=== PATIENT | female | born 1980 | race Caucasian/White ===

== ENCOUNTER 2024-07-12 09:28 | Outpatient (CLI) | payer BC, SELFPAY ==
--- OUTSIDE RECORDS SUMMARY | 2024-07-12 10:03 | XMS_ITS | Referral Summary ---
Author Organization [address] Address [address] [place] [address] Care Team Providers Care Ultrasound Technician Name Role Phone No, Physician Primary Care Provider [phone] Allergies No known active allergies Medications levothyroxine (SYNTHROID) 25 mcg tablet TAKE 1 TABLET BY MOUTH ONCE A DAY DIRECTED REPEAT LAB IN 4-6 WEEKS 08/10/19 23 Active cariprazine (Vraylar) 4.5 mg capsule Take 4.5 mg by mouth daily Active citalopram (CeleXA) 20 mg tablet Take 1 tablet (20 mg total) by mouth daily Active topiramate (TOPAMAX) 25 mg capsule Take 1 capsule (25 mg total) by mouth 2 (two) times a day Active ciprofloxacin (CILOXAN) 0.3 % ophthalmic solution Administer 1 drop into the left eye every 2 (two) hours Administer 1 drop, every 2 hours, while awake, for 2 days. Then 1 drop, every 4 hours, while awake, for the next 5 days. 5 mL 09/01/19 23 Active Additional Information Patient not taking.Reported on 02/09/2023 Estarylla 0.25-35 mg-mcg per tablet TAKE 1 TABLET BY MOUTH EVERY DAY DIRECTED. TAKE ACTIVE PILLS ONLY 10/02/19 23 Active OLANZapine (ZyPREXA) 5 mg tablet Take 1 tablet (5 mg total) by mouth daily 06/20/19 24 Active ondansetron ODT (ZOFRAN-ODT) 4 mg disintegrating tablet Take 1 tablet (4 mg total) by mouth every 8 (eight) hours as needed for nausea or vomiting 20 tablet 07/15/19 24 Active Active Problems No known active problems Social History Tobacco Use Types Packs/Day Years Used Date Smoking Tobacco: Never Assessed Comments Unknown Sex and Gender Information Value Date Recorded Sex Assigned at Not on file Legal Sex Female 8:30 AM CDT Gender Identity Not on file Sexual Orientation Not on file Last Filed Vital Signs Vital Sign Reading Time Taken Comments Blood Pressure 114/72 07/15/2023 8:44 AM CDT Pulse 60 07/15/2023 8:44 AM CDT Temperature 36.8 C (98.3 F) 07/15/2023 8:44 AM CDT Respiratory Rate 18 07/15/2023 8:44 AM CDT Oxygen Saturation 99% 07/15/2023 8:44 AM CDT Inhaled Oxygen Concentration - - Weight 81.6 kg (180 lb) 07/15/2023 8:44 AM CDT Height 157.5 cm (5' 2 ) 07/15/2023 8:44 AM CDT Body Mass Index 32.92 07/15/2023 8:44 AM CDT Plan of Treatment Not on file [place] Care Teams Ultrasound Technician Relationship Specialty Start Date End Date No, Physician PCP - General 08/31/22
--- OUTSIDE RECORDS SUMMARY | 2024-07-12 10:03 | XMS_ITS | Encounter Summary ---
Author Organization [facility] Address [address] [place] [address] Phone Care Team Providers Care Disposal Plant Operator Name Role Phone Provider, None Primary Care Provider Unavailabl e Encounter Details Date Type Department Care Team (Late st Contact Info) Description 06/02/2022 Lab Requisition [facility] Laboratory Services [address] [place] [address] Juliann Newell, GROUNDS AND NURSERY SPECIALIST, CAREER DEVELOPMENT SPECIALIST [address] [place] [address] Encounter for pre-employment examination Social History Tobacco Use Types Packs/Day Years Used Date Smoking Tobacco: Never Assessed Comments Unknown Sex and Gender Information Value Date Recorded Sex Assigned at Not on file Legal Sex Female 11:45 AM TRUCK FARMER Gender Identity Not on file Sexual Orientation Not on file COVID-19 Exposure Response Date Recorded In the last 10 days, have yo u been in contact with someone who was confirmed or suspected to have Coronavirus/COVID-19? Unable to assess 06/02/2022 11:50 AM TRUCK FARMER documented as of this encounter Plan of Treatment Not on file documented as of this encounter Procedures Procedure Name Priority Date/Time Associated Diagnosis Comments QUANTIFERON-TB GOLD PLUS Routine 06/02/2022 11:00 AM TRUCK FARMER Encounter for pre-employment examination documented in this encounter Results * QUANTIFERON-TB GOLD PLUS (06/02/2022 11:00 AM TRUCK FARMER) NIL CONTROL 0.11 <8.01 IU/mL 06/04/2022 2:52 PM TRUCK FARMER [facility] TB ANTIGEN 1 0.00 <0.35 IU/mL 06/04/2022 2:52 PM [facility] TB ANTIGEN 2 0.00 <0.35 IU/mL 06/04/2022 2:52 PM [facility] MITOGEN CONTROL >10.00 >0.49 IU/mL 06/05/19 2:52 PM [facility] INTEPRETATION TB NEGATIVE NEGATIVE, NEGATIVE (TB antigen response less than 25% of internal negative control value) 06/04/2022 2:52 PM [facility] Comment:No immune response t o Mycobacterium tuberculosis antigens was noted. M. tuberculosis infection unlikely. Blood No Phlebotomy Charged / Unknown 06/02/2022 11:00 AM TRUCK FARMER 06/02/2022 3:28 PM TRUCK FARMER Narrative [facility] - 06/04/2022 2:52 PM TRUCK FARMER A POSITIVE QUANTIFERON-TB GOLD PLUS RESULT SHOULD NOT BE THE SOLE OR DEFINITIVE BASIS FOR DETERMINING INFECTION WITH M.TUBERCULOSIS. Diagnosing or excluding tuberculosis disease, and assessing the probability of LTBI, requires a combination of epidemiological, historical, medical and diagnostic findings (e.g., acid fast bacilli (AFB) smear and culture, chest xray) that should be taken into account when interpreting QFT-Plus results. Furthermore, the magnitude of the measured gamma interferon level cannot be correlated to stage or degree of infection, level of immune responsiveness, or likelihood for progression to active disease. The Nil control adjusts for background (e.g., elevated levels of circulating gamma interferon or presence of heterophile antibodies). The Mitogen control serves as an internal positive control and verifies each specimen tested can produce a gamma interferon response. Low mitogen may occur with insufficient lymphocytes, reduced lymphocyte activity due to improper specimen handling, filling/mixing of the mitogen tube, or inability of the patient's lymphocytes to generate gamma interferon. Infection with other Mycobacteria, including M. kansasii, M. szulgai, and M. marinum, may cause false positive results. A negative QuantiFERON-TB Gold Plus result does not preclude the possibility of M. tuberculosis infection or tuberculosis disease: false negative results can be due to incorrect blood sample collection/ improper handling of the specimen, stage of infection (e.g., specimen obtained prior to the development of cellular immune response), co-morbid conditions which affect immune function, or other individual immunological factors. The minimum number of lymphocytes required for a reliable test has not been established and may also be variable. Diagnostic testing for Mycobacterium tuberculosis using Interferon Gamma Release Assays should follow applicable published guidelines, including when testing in populations such as children, women, and HIV-infected or otherwise immunocompromised individuals. https://www.cdc.gov/tb/publications/guidelines/testing.htm [place] Juliann Newell APRN, CNP IMMUNOLOGY ORDERABLES F inal Result [facility] [address] [place] [address], [place] documented in this encounter Visit Diagnoses Diagnosis Encounter for pre-employment examination Health examination of defined subpopulation documented in this encounter Care Teams Disposal Plant Operator Relationship Specialty Start Date End Date Provider, None [place] PCP - General 06/02/22 documented as of this encounter
--- OUTSIDE RECORDS SUMMARY | 2024-07-12 10:03 | XMS_ITS | Clinical Summary ---
Author Organization [address] Address [address] [place] [address] Care Team Providers Care Chemical Worker Name Role Phone No, Physician Primary Care Provider [phone] Allergies No known active allergies Medications levothyroxine [...] on file Sexual Orientation Not on file Obstetrics History Last Filed Vital Signs Vital Sign Reading [...] 07/15/2023 8:44 AM CDT Plan of Treatment Health Maintenance Due Date Last Done Comments Breast Cancer Screening-Mammogram 1982 Cervical Cancer Screening 1982 Depression Screening 1982 Hepatitis C Screening 1982 DTaP/Tdap/Td Vaccine (1 - Tdap) 1993 Varicella Vaccines (1 of 2 - 13+ 2-dose series) 1995 Hepatitis B Screening 2000 Regular Well Visit/Exam 18-64 2000 Influenza Vaccine (Season Ended) 2024 HPV Vaccines Aged Out No longer eligi ble based on patient's age to complete this topic Pneumococcal vaccine <65 Aged Out No longer eligible based on patient's age to complete this topic Insurance [facility] Care Teams Chemical Worker Relationship Specialty Start Date End Date No, Physician PCP - General 08/31/22
--- OUTSIDE RECORDS SUMMARY | 2024-07-12 10:03 | XMS_ITS | Clinical Summary ---
Author Organization [facility] Address [address] [place] [address] Phone Care Team Providers Care Concrete Stone Finishing Supervisor Name Role Phone Provider, None Primary Care Provider Unavailabl e Social History Tobacco Use Types Packs/Day Years Used Date Smoking Tobacco: Never Assessed Comments Unknown Sex and Gender Information Value Date Recorded Sex Assigned at Not on file Legal Sex Female 11:45 AM AIRCRAFT MECHANIC Gender Identity Not on file Sexual Orientation Not on file Plan of Treatment Health Maintenance Due Date Last Done Comments Hepatitis C Virus (HCV) Screening 1982 TdaP Immunization 1982 Hepatitis B Immunization (1 of 3 - 19+ 3-dose series) 2001 Pap Smear 2003 Cervical Cancer Screening (CCS) 2012 HPV/Cotest 2012 Discussion re Starting/Frequ ency of Mammograms 2022 Influenza Immunization (#1) 2023 SARS-COV-2 Immunization ( season) 2023 Respiratory Syncytial Virus (RSV) Immunization (Adult) (1 - 1-dose 75+ series) 2057 Meningococcal Immunization (ACWY) Aged Out No longer eligible based on patient's age to complete this topic Pneumococcal Immunization Combined Aged Out No longer eligible based on patient's age to complete this topic Rotavirus Immunization Aged Out No lo nger eligible based on patient's age to complete this topic Care Teams Concrete Stone Finishing Supervisor Relationship Specialty Start Date End Date Provider, Latasha MAYORGA PCP - General 06/02/22
[2024-07-12 10:23] LABS: Basophils Absolute Auto 0.04 K/mm3 (0.00-0.10); Basophils Percent Auto 0.5 % (0.0-1.0); Eosinophils Absolute Auto 0.12 K/mm3 (0.02-0.50); Eosinophils Percent Auto 1.5 % (1.0-6.0); Hemoglobin 13.9 g/dL (12.0-15.0); Immature Granulocyte Absolute 0.01 K/mm3 (0.00-0.00); Immature Granulocyte Percent A 0.1 % (0.0-0.0); Lymphocytes Absolute Auto 2.26 K/mm3 (1.10-4.50); Lymphocytes Percent Auto 28.3 % (18.0-42.0); Mean Corpuscular HGB Conc 32.3 g/dL (32-36); Mean Corpuscular Hemoglobin 28.8 pg (27.0-31.0); Monocytes Absolute Auto 0.52 K/mm3 (0.10-0.90); Monocytes Percent Auto 6.5 % (2.0-11.0); Neutrophils Absolute Auto 5.03 K/mm3 (1.70-7.20); Neutrophils Percent Auto 63.1 % (50.0-70.0); Platelet Count Result 233 K/mm3 (150-420); Red Blood Count 4.83 M/mm3 (4.20-5.40); Red Cell Distribution Width 13.1 % (11.6-14.4)
[2024-07-12 10:35] LABS: Hemoglobin A1C 5.6 % (<5.7)
[2024-07-12 12:03] LABS: Alanine Aminotransferase 26 U/L (14-59); Alkaline Phosphatase 116 U/L (46-116); Anion Gap 9 mmol/L (4-12); Aspartate Amino Transferase 15 U/L (15-37); Bilirubin,Total 1.2 mg/dL (0.00-1.00); Blood Urea Nitrogen 16 mg/dL (7-18); Calcium 8.9 mg/dL (8.5-10.1); Carbon Dioxide 27 mmol/L (21-32); Chloride 105 mmol/L (98-108); Cholesterol 201 mg/dL (0-200); Estimated Glomerular Filt Rate > 60; Glucose 86 mg/dL (70-99); HDL Direct 38 mg/dL (40-60); LDL Cholesterol Calculated 139 mg/dL (<130); Osmolality Calculated 292 mOsm/kg (285-295); Potassium 4.6 mmol/L (3.5-5.1); Sodium 141 mmol/L (136-145); Triglycerides 119 mg/dL (0-150)
[2024-07-12 12:37] LABS: Thyroid Stimulating Hormone Reflex 2.84 u/IU/mL (0.36-3.74)
[2024-07-14 09:52] LABS: TB Skin Test Erythema 2 mm; TB Skin Test Induration 1 mm (0-10); TB Skin Test Interpretation Negative (Negative); TB Skin Test Site Left Arm
== END 2024-07-12 09:29 | disposition home or self-care (01) ==
LOC: CHSLAB 09:30
PROVIDERS: PCP Nurse Practitioner Family; Visit Provider Nurse Practitioner Family
DX: Z00.00 Encounter for general adult medical examination without abnormal findings (principal); Z11.1 Encounter for screening for respiratory tuberculosis
CPT/HCPCS: 36415; 80053; 80061; 83036; 84443; 85025; 86580

== ENCOUNTER 2024-07-14 09:50 | Outpatient (CLI) | payer BC, SELFPAY ==
--- OUTSIDE RECORDS SUMMARY | 2024-07-14 09:55 | XMS_ITS | Clinical Summary ---
Author Organization [address] Address [address] [place] [address] Care Team Providers Care Curriculum Director Name Role Phone No, Physician Primary Care Provider [phone] Allergies No known active allergies Medications levothyroxine [...] patient's age to complete this topic Insurance [facility] Care Teams Curriculum Director Relationship Specialty Start Date End Date No, Physician PCP - General 08/31/22
--- OUTSIDE RECORDS SUMMARY | 2024-07-14 09:55 | XMS_ITS | Referral Summary ---
Author Organization [address] Address [address] [place] [phone] Care Team Providers Care Lode Miner Name Role Phone No, Physician Primary Care Provider [phone] Allergies No known active allergies Medications levothyroxine [...] Plan of Treatment Not on file Insurance [employer] [place] Care Teams Lode Miner Relationship Specialty Start Date End Date No, Physician PCP - General 08/31/22
--- OUTSIDE RECORDS SUMMARY | 2024-07-14 09:55 | XMS_ITS | Clinical Summary ---
Author Organization [facility] Address [address] [place] [address] Phone Care Team Providers Care Video Poker Floorman Name Role Phone Provider, None Primary Care Provider Unavailabl e Social History Tobacco Use Types Packs/Day Years Used Date Smoking Tobacco: Never Assessed Comments Unknown Sex and Gender Information Value Date Recorded Sex Assigned at Not on file Legal Sex Female 11:45 AM LICENSING SPECIALIST Gender Identity Not on file Sexual Orientation [...] age to complete this topic Care Teams Video Poker Floorman Relationship Specialty Start Date End Date Provider, Latasha MAYORGA PCP - General 06/02/22
--- OUTSIDE RECORDS SUMMARY | 2024-07-14 09:55 | XMS_ITS | Encounter Summary ---
Author Organization [facility] Address [address] [place] [address] Phone Care Team Providers Care Bottom Steep Tender Name Role Phone Provider, None Primary Care Provider Unavailabl e Encounter Details Date Type Department Care Team (Late st Contact Info) Description 06/02/2022 Lab Requisition [facility] Laboratory Services [address] [place] [address] Jluiann Newell, BILLET WORKER, [facility]ILD [facility] [address] [place] [address] Encounter for pre-employment examination Social History Tobacco Use Types Packs/Day Years Used Date Smoking Tobacco: Never Assessed Comments Unknown Sex and Gender Information Value Date Recorded Sex Assigned at Not on file Legal Sex Female 11:45 AM BOX REPAIRER Gender Identity Not on file Sexual Orientation Not on file COVID-19 Exposure Response Date Recorded In the last 10 days, have yo u been in contact with someone who was confirmed or suspected to have Coronavirus/COVID-19? Unable to assess 06/02/2022 11:50 AM BOX REPAIRER documented as of this encounter Plan of Treatment Not on file documented as of this encounter Procedures Procedure Name Priority Date/Time Associated Diagnosis Comments QUANTIFERON-TB GOLD PLUS Routine 06/02/2022 11:00 AM BOX REPAIRER Encounter for pre-employment examination documented in this encounter Results * QUANTIFERON-TB GOLD PLUS (06/02/2022 11:00 AM BOX REPAIRER) NIL CONTROL 0.11 <8.01 IU/mL 06/04/2022 2:52 PM BOX REPAIRER [facility] TB ANTIGEN 1 0.00 <0.35 IU/mL 06/04/2022 2:52 PM [facility] TB ANTIGEN 2 0.00 <0.35 IU/mL 06/04/2022 2:52 PM [facility] MITOGEN CONTROL >10.00 >0.49 IU/mL 06/05/19 2:52 PM [facility] INTEPRETATION TB NEGATIVE NEGATIVE, NEGATIVE (TB antigen response less than 25% of internal negative control value) 06/04/2022 2:52 PM [facility] Comment:No immune response t o Mycobacterium tuberculosis antigens was noted. M. tuberculosis infection unlikely. Blood No Phlebotomy Charged / Unknown 06/02/2022 11:00 AM BOX REPAIRER 06/02/2022 3:28 PM BOX REPAIRER Narrative [facility] - 06/04/2022 2:52 PM BOX REPAIRER A POSITIVE QUANTIFERON-TB GOLD PLUS RESULT SHOULD [...] CNP IMMUNOLOGY ORDERABLES F inal Result [facility] [address] [place] [address], [place] documented in this encounter Visit Diagnoses Diagnosis Encounter for pre-employment examination Health examination of defined subpopulation documented in this encounter Care Teams Bottom Steep Tender Relationship Specialty Start Date End Date Provider, None [place] PCP - General 06/02/22 documented as of this encounter
[2024-07-14 11:16] LABS: Alanine Aminotransferase 23 U/L (14-59); Alkaline Phosphatase 118 U/L (46-116); Anion Gap 7 mmol/L (4-12); Aspartate Amino Transferase 14 U/L (15-37); Bilirubin,Total 0.7 mg/dL (0.00-1.00); Blood Urea Nitrogen 12 mg/dL (7-18); Carbon Dioxide 28 mmol/L (21-32); Chloride 105 mmol/L (98-108); Cholesterol 204 mg/dL (0-200); Estimated Glomerular Filt Rate > 60; Glucose 106 mg/dL (70-99); HDL Direct 38 mg/dL (40-60); LDL Cholesterol Calculated 141 mg/dL (<130); Osmolality Calculated 289 mOsm/kg (285-295); Potassium 4.9 mmol/L (3.5-5.1); Sodium 140 mmol/L (136-145); Triglycerides 125 mg/dL (0-150)
== END 2024-07-14 09:51 | disposition home or self-care (01) ==
LOC: CHSLAB 09:54
PROVIDERS: PCP Nurse Practitioner Family; Visit Provider Nurse Practitioner Family
DX: E78.00 Pure hypercholesterolemia, unspecified (principal)
CPT/HCPCS: 36415; 80053; 80061

== ENCOUNTER 2024-07-19 17:29 | Outpatient (CLI) | payer BC, SELFPAY ==
--- OUTSIDE RECORDS SUMMARY | 2024-07-19 17:37 | XMS_ITS | Encounter Summary ---
Author Organization [facility] Address [address] [place] [address] Phone Care Team Providers Care Scowman Name Role Phone Provider, None Primary Care Provider Unavailabl e Encounter Details Date Type Department Care Team (Late st Contact Info) Description 06/02/2022 Lab Requisition [facility] Laboratory Services [address] [place] [address] Juliann Newell, INTEGRATION SOFTWARE ENGINEER, BICYCLE MESSENGER [address] [place] [address] Encounter for pre-employment examination Social History Tobacco Use Types Packs/Day Years Used Date Smoking Tobacco: Never Assessed Comments Unknown Sex and Gender Information Value Date Recorded Sex Assigned at Not on file Legal Sex Female 11:45 AM BULK STATION AGENT Gender Identity Not on file Sexual Orientation Not on file COVID-19 Exposure Response Date Recorded In the last 10 days, have yo u been in contact with someone who was confirmed or suspected to have Coronavirus/COVID-19? Unable to assess 06/02/2022 11:50 AM BULK STATION AGENT documented as of this encounter Plan of Treatment Not on file documented as of this encounter Procedures Procedure Name Priority Date/Time Associated Diagnosis Comments QUANTIFERON-TB GOLD PLUS Routine 06/02/2022 11:00 AM BULK STATION AGENT Encounter for pre-employment examination documented in this encounter Results * QUANTIFERON-TB GOLD PLUS (06/02/2022 11:00 AM BULK STATION AGENT) NIL CONTROL 0.11 <8.01 IU/mL 06/04/2022 2:52 PM BULK STATION AGENT [facility] TB ANTIGEN 1 0.00 <0.35 IU/mL 06/04/2022 2:52 PM [facility] TB ANTIGEN 2 0.00 <0.35 IU/mL 06/04/2022 2:52 PM [facility] MITOGEN CONTROL >10.00 >0.49 IU/mL 06/05/19 2:52 PM [facility] INTEPRETATION TB NEGATIVE NEGATIVE, NEGATIVE (TB antigen response less than 25% of internal negative control value) 06/04/2022 2:52 PM [facility] Comment:No immune response t o Mycobacterium tuberculosis antigens was noted. M. tuberculosis infection unlikely. Blood No Phlebotomy Charged / Unknown 06/02/2022 11:00 AM BULK STATION AGENT 06/02/2022 3:28 PM BULK STATION AGENT Narrative [facility] - 06/04/2022 2:52 PM BULK STATION AGENT A POSITIVE QUANTIFERON-TB GOLD PLUS RESULT SHOULD [...] IMMUNOLOGY ORDERABLES F inal Result [facility] [address] [place] [address], [place] documented in this encounter Visit Diagnoses Diagnosis Encounter for pre-employment examination Health examination of defined subpopulation documented in this encounter Care Teams Scowman Relationship Specialty Start Date End Date Provider, None [place] PCP - General 06/02/22 documented as of this encounter
--- OUTSIDE RECORDS SUMMARY | 2024-07-19 17:37 | XMS_ITS | Referral Summary ---
Author Organization [address] Address [address] [place] [address] Care Team Providers Care Paper Deliverer Name Role Phone No, Physician Primary Care Provider Allergies No known active allergies Medications levothyroxine [...] Plan of Treatment Not on file Insurance [employer] [place] [employer] [place] Care Teams Paper Deliverer Relationship Specialty Start Date End Date No, Physician PCP - General 08/31/22
--- OUTSIDE RECORDS SUMMARY | 2024-07-19 17:37 | XMS_ITS | Clinical Summary ---
Author Organization [facility] Address [address] [place] [address] Phone Care Team Providers Care Taker Off Hemp Fiber Name Role Phone Provider, None Primary Care Provider Unavailabl e Social History Tobacco Use Types Packs/Day Years Used Date Smoking Tobacco: Never Assessed Comments Unknown Sex and Gender Information Value Date Recorded Sex Assigned at Not on file Legal Sex Female 11:45 AM DRINKING WATER TECHNICIAN Gender Identity Not on file Sexual Orientation [...] age to complete this topic Care Teams Taker Off Hemp Fiber Relationship Specialty Start Date End Date Provider, Latasha MAYORGA PCP - General 06/02/22
--- OUTSIDE RECORDS SUMMARY | 2024-07-19 17:37 | XMS_ITS | Clinical Summary ---
Author Organization [address] Address [address] [place] [address] Care Team Providers Care Embroidery Specialist Name Role Phone No, Physician Primary Care Provider [phone] Allergies No known active allergies Medications levothyroxine [...] patient's age to complete this topic Insurance [facility] Care Teams Embroidery Specialist Relationship Specialty Start Date End Date No, Physician PCP - General 08/31/22
[2024-07-21 09:40] LABS: TB Skin Test Site Left Arm
[2024-07-21 09:41] LABS: TB Skin Test Erythema 0 mm; TB Skin Test Induration 0 mm (0-10); TB Skin Test Interpretation Negative (Negative)
== END 2024-07-19 17:30 | disposition home or self-care (01) ==
LOC: CHSLAB 17:31
PROVIDERS: PCP Nurse Practitioner Family; Visit Provider Nurse Practitioner Family
DX: Z11.1 Encounter for screening for respiratory tuberculosis (principal)
CPT/HCPCS: 36415; 86580

== ENCOUNTER 2024-09-29 07:35 | Outpatient (CLI) | payer BC, SELFPAY ==
--- OUTSIDE RECORDS SUMMARY | 2024-09-29 07:39 | XMS_ITS | Clinical Summary ---
Author Organization [facility] Address [address] [place] [address] Phone Care Team Providers Care Cuff Setter Overlock Name Role Phone Provider, None Primary Care Provider Unavailabl e Social History Tobacco Use Types Packs/Day Years Used Date Smoking Tobacco: Never Assessed Comments Unknown Sex and Gender Information Value Date Recorded Sex Assigned at Not on file Legal Sex Female 11:45 AM BEAN SNIPPER Gender Identity Not on file Sexual Orientation [...] age to complete this topic Care Teams Cuff Setter Overlock Relationship Specialty Start Date End Date Provider, Latasha MAYORGA PCP - General 06/02/22
--- OUTSIDE RECORDS SUMMARY | 2024-09-29 07:39 | XMS_ITS | Referral Summary ---
Author Organization [address] Address [address] [place] [address] Care Team Providers Care Credit Interviewer Name Role Phone No, Physician Primary Care Provider [phone] Allergies No known active allergies Medications levothyroxine [...] 8:44 AM CDT Height 157.5 cm (5' 2) 07/15/2023 8:44 AM CDT Body Mass Index 32.92 07/15/2023 8:44 AM CDT Plan of Treatment Not on file Insurance [employer] [place] [employer] [place] Care Teams Credit Interviewer Relationship Specialty Start Date End Date No, Physician PCP - General 08/31/22
--- OUTSIDE RECORDS SUMMARY | 2024-09-29 07:39 | XMS_ITS | Encounter Summary ---
Author Organization [facility] Address [address] [place] [address] Phone Care Team Providers Care Tow Truck Driver Name Role Phone Provider, None Primary Care Provider Unavailabl e Encounter Details Date Type Department Care Team (Late st Contact Info) Description 06/02/2022 Lab Requisition [facility] Laboratory Services [address] [place] [address] Juliann Newell, HISTOLOGY TECH, FIELD PARTY MANAGER [address] [place] [address] Encounter for pre-employment examination Social History Tobacco Use Types Packs/Day Years Used Date Smoking Tobacco: Never Assessed Comments Unknown Sex and Gender Information Value Date Recorded Sex Assigned at Not on file Legal Sex Female 11:45 AM PILLOW CLEANER Gender Identity Not on file Sexual Orientation Not on file COVID-19 Exposure Response Date Recorded In the last 10 days, have yo u been in contact with someone who was confirmed or suspected to have Coronavirus/COVID-19? Unable to assess 06/02/2022 11:50 AM PILLOW CLEANER documented as of this encounter Plan of Treatment Not on file documented as of this encounter Procedures Procedure Name Priority Date/Time Associated Diagnosis Comments QUANTIFERON-TB GOLD PLUS Routine 06/02/2022 11:00 AM PILLOW CLEANER Encounter for pre-employment examination documented in this encounter Results * QUANTIFERON-TB GOLD PLUS (06/02/2022 11:00 AM PILLOW CLEANER) NIL CONTROL 0.11 <8.01 IU/mL 06/04/2022 2:52 PM PILLOW CLEANER [facility] TB ANTIGEN 1 0.00 <0.35 IU/mL 06/04/2022 2:52 PM [facility] TB ANTIGEN 2 0.00 <0.35 IU/mL 06/04/2022 2:52 PM [facility] MITOGEN CONTROL >10.00 >0.49 IU/mL 06/05/19 2:52 PM [facility] INTEPRETATION TB NEGATIVE NEGATIVE, NEGATIVE (TB antigen response less than 25% of internal negative control value) 06/04/2022 2:52 PM [facility] Comment:No immune response t o Mycobacterium tuberculosis antigens was noted. M. tuberculosis infection unlikely. Blood No Phlebotomy Charged / Unknown 06/02/2022 11:00 AM PILLOW CLEANER 06/02/2022 3:28 PM PILLOW CLEANER Narrative [facility] - 06/04/2022 2:52 PM PILLOW CLEANER A POSITIVE QUANTIFERON-TB GOLD PLUS RESULT SHOULD [...] CNP IMMUNOLOGY ORDERABLES F inal Result [facility] [address] [place] [address], [place] documented in this encounter Visit Diagnoses Diagnosis Encounter for pre-employment examination Health examination of defined subpopulation documented in this encounter Care Teams Tow Truck Driver Relationship Specialty Start Date End Date Provider, None [place] PCP - General 06/02/22 documented as of this encounter
--- OUTSIDE RECORDS SUMMARY | 2024-09-29 07:39 | XMS_ITS | Clinical Summary ---
Author Organization [address] Address [address] [place] [address] Care Team Providers Care Kettle Tender Name Role Phone No, Physician Primary Care Provider [phone] Allergies No known active allergies Medications levothyroxine [...] patient's age to complete this topic Insurance [facility] Care Teams Kettle Tender Relationship Specialty Start Date End Date No, Physician PCP - General 08/31/22
[2024-09-29 09:07] LABS: Alanine Aminotransferase 19 U/L (6-35); Albumin Level 4.3 g/dL (3.5-5.1); Alkaline Phosphatase 73 U/L (38-126); Anion Gap 4 mmol/L (4-12); Aspartate Amino Transferase 27 U/L (14-36); Bilirubin,Total 1.2 mg/dL (0.2-1.3); Blood Urea Nitrogen 15 mg/dL (7-17); Calcium 9.1 mg/dL (8.4-10.2); Carbon Dioxide 25 mmol/L (22-30); Chloride 110 mmol/L (98-107); Cholesterol 212 mg/dL (0-200); Estimated Glomerular Filt Rate > 60; Glucose 86 mg/dL (65-110); HDL Direct 36 mg/dL; Osmolality Calculated 287 mOsm/kg (285-295); Potassium 4.5 mmol/L (3.4-5.0); Sodium 139 mmol/L (137-145); Total Protein 6.7 g/dL (6.3-8.2); Triglycerides 89 mg/dL (<150)
== END 2024-09-29 07:36 | disposition home or self-care (01) ==
PROVIDERS: PCP Nurse Practitioner Family; Visit Provider Nurse Practitioner Family
DX: E78.00 Pure hypercholesterolemia, unspecified (principal)
CPT/HCPCS: 36415; 80053; 80061

== ENCOUNTER 2024-10-06 08:00 | Outpatient (CLI) | payer BC, SELFPAY ==
--- OUTSIDE RECORDS SUMMARY | 2024-10-06 08:03 | XMS_ITS | Encounter Summary ---
Author Organization [facility] Address [address] [place] [address] Phone Care Team Providers Care Dental Officer Name Role Phone Provider, None Primary Care Provider Unavailabl e Encounter Details Date Type Department Care Team (Late st Contact Info) Description 06/02/2022 Lab Requisition [facility] [address] [place] [address] Juliann Newell, RN UNIT MANAGER, SUBMARINE ADVISORY TEAM WATCH OFFICER [address] [place] [address] Encounter for pre-employment examination Social History Tobacco Use Types Packs/Day Years Used Date Smoking Tobacco: Never Assessed Comments Unknown Sex and Gender Information Value Date Recorded Sex Assigned at Not on file 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 Unable to assess 06/02/2022 11:50 AM HOISTING MACHINE OPERATOR documented as of this encounter Plan of Treatment Not on file documented as of this encounter Procedures Procedure Name Priority Date/Time Associated Diagnosis Comments QUANTIFERON-TB GOLD PLUS Routine 06/02/2022 11:00 AM HOISTING MACHINE OPERATOR Encounter for pre-employment examination documented in this encounter Results * QUANTIFERON-TB GOLD PLUS (06/02/2022 11:00 AM HOISTING MACHINE OPERATOR) NIL CONTROL 0.11 <8.01 IU/mL 06/04/2022 2:52 PM HOISTING MACHINE OPERATOR [facility] TB ANTIGEN 1 0.00 <0.35 IU/mL 06/04/2022 2:52 PM [facility] TB ANTIGEN 2 0.00 <0.35 IU/mL 06/04/2022 2:52 PM [facility] MITOGEN CONTROL >10.00 >0.49 IU/mL 06/05/19 2:52 PM [facility] INTEPRETATION TB NEGATIVE NEGATIVE, NEGATIVE (TB antigen response less than 25% of internal negative control value) 06/04/2022 2:52 PM [facility] Comment:No immune response t o Mycobacterium tuberculosis antigens was noted. M. tuberculosis infection unlikely. Blood No Phlebotomy Charged / Unknown 06/02/2022 11:00 AM HOISTING MACHINE OPERATOR 06/02/2022 3:28 PM HOISTING MACHINE OPERATOR Narrative [facility] - 06/04/2022 2:52 PM HOISTING MACHINE OPERATOR A POSITIVE QUANTIFERON-TB GOLD PLUS RESULT SHOULD [...] CNP IMMUNOLOGY ORDERABLES F inal Result [facility] [address] [place] [address], [place] documented in this encounter Visit Diagnoses Diagnosis Encounter for pre-employment examination Health examination of defined subpopulation documented in this encounter Care Teams Dental Officer Relationship Specialty Start Date End Date Provider, None [place] PCP - General 06/02/22 documented as of this encounter
--- OUTSIDE RECORDS SUMMARY | 2024-10-06 08:03 | XMS_ITS | Referral Summary ---
Author Organization [address] Address [address] [place] [id number] Care Team Providers Care Hiv Nurse Name Role Phone No, Physician Primary Care Provider [phone] Allergies No known active allergies Medications levothyroxine [...] Plan of Treatment Not on file [place] [employer] [place] [employer] [place] Care Teams Hiv Nurse Relationship Specialty Start Date End Date No, Physician PCP - General 08/31/22
--- OUTSIDE RECORDS SUMMARY | 2024-10-06 08:03 | XMS_ITS | Clinical Summary ---
Author Organization [address] Address [address] [place] [id number] Care Team Providers Care Antique Collector Name Role Phone No, Physician Primary Care Provider [phone] Allergies No known active allergies Medications levothyroxine [...] patient's age to complete this topic Insurance [facility] Care Teams Antique Collector Relationship Specialty Start Date End Date No, Physician PCP - General 08/31/22
--- OUTSIDE RECORDS SUMMARY | 2024-10-06 08:03 | XMS_ITS | Clinical Summary ---
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
[2024-10-06 09:39] LABS: Hemoglobin A1C 5.3 % (<5.7)
== END 2024-10-06 08:01 | disposition home or self-care (01) ==
LOC: CHSLAB 08:01
PROVIDERS: PCP Nurse Practitioner Family; Visit Provider Nurse Practitioner Family
DX: E78.00 Pure hypercholesterolemia, unspecified (principal)
CPT/HCPCS: 36415; 83036